=== PATIENT | female | born 1970 | race Caucasian/White ===

== ENCOUNTER → 2021-03-21 | Outpatient (CLI) | payer BC ==
--- NOTE | 2021-03-22 11:07 | CT ---
EXAMINATION TYPE: CT urogram wo/w con DATE OF EXAM: 03/21/2021 COMPARISON: HISTORY: Benign essential microscopic hematuria. CT DLP: 1325.70 mGycm Automated exposure control for dose reduction was used. CONTRAST: Performed with IV Contrast, patient injected with 100 mL of Isovue 300. FINDINGS: Noncontrast imaging demonstrates no diagnostic evidence of hydronephrosis or renal calculus. Delayed imaging demonstrates a small hypodensity measuring 8 mm within the lateral cortex of the righ t kidney and a 2 mm hypodensity within the upper pole posterior cortex of the left kidney too small t o characterize no hydronephrosis. No nephrolithiasis. Within the liver posterior segment right lobe there is a hypodense mass measuring 2 cm which appears to fill in on delayed imaging suggestive of a hemangioma. Postcholecystectomy changes are seen. As a small hiatal hernia. Adrenal glands have a normal morphology. Pancreas has a normal appearance. Aorta of normal caliber. Portal vein enhances normally. Bowel gas pattern nonspecific with no obstruc tion. Ureters extends somewhat anteriorly toward the anterior abdominal wall is recommended be confir med with ultrasound imaging. The bladder demonstrates no definite filling defect. Hypertrophic and degenerative changes of the spine. IMPRESSION: 1. No hydronephrosis or nephrolithiasis. Hypodense lesions involving the kidneys are too small to geetha racterize but statistically most likely be related to simple cysts. Follow-up as clinically warranted . 2. Posterior segment right lobe hepatic hemangioma. 3. There is a somewhat anteriorly displaced which may be developmental recommend pelvic ultrasound fo r confirmation.
== END | disposition home or self-care (01) ==
LOC: RADCTMAIN 16:17
PROVIDERS: ATTEND Urology
DX: R31.1 Benign essential microscopic hematuria (principal)
CPT/HCPCS: 74178; 74400; Q9967